=== PATIENT | male | born 1995 | race Caucasian/White ===

== ENCOUNTER 2016-05-29 02:41 | Emergency (ER) | payer MEDICAID, OTHER ==
[~2016-05-29] VITALS: Ht 182.9 cm; Wt 207.3 kg
[~2016-05-29 02:41] MED LIST: LORTA5 PO; Z.0.NO CURRENT MEDS
[2016-05-29 02:47] VITALS: BP 145/97; PULSE 89; RESP 20; TEMP 98; O2SAT 96
[2016-05-29 03:49] VITALS: BP 145/97; PULSE 89; RESP 20; TEMP 98; O2SAT 96
[2016-05-29] MEDS ORDERED: POLY3.5O RIGHT EYE (03:58)
[2016-05-29] MEDS ORDERED: PROPARACAINE HCL 0.5% OPHT SOLN 15 ML BTL RIGHT EYE ONE (04:30)
[2016-05-29] MEDS ORDERED: HYDR-3533 PO (04:46)
--- NOTE | 2016-05-29 04:46 | PD ---
HPI Chief Complaint: Eye Problems/Injury Time Seen by Provider: 04:24 Travel History International Travel<30 days: No Contact w/Intl Traveler<30days: No Traveled to known affect area: No History of Present Illness HPI 21-year-old male presents to the emergency department with right eye pain tearing and redness. Patient states he wore his sisters contact lens on and started developing eye pain and removed and then ordered again on Tuesday with worsening eye pain. Patient went to [facility] and was told he had at [facility] infection and was given a prescription for an antibiotic ointment symptoms of progressive worsened and presents now for further evaluation. Patient is not his tetanus status. Patient normally wears eyeglasses and does not have his own prescription for contact lenses. Patient states he did not wear one of his sisters use contact lenses. PFSH Past Medical History Diminished Hearing: No Hypertension: Yes Immunizations Current: No Tetanus Vaccination: Unknown Social History Alcohol Use: Yes (OCCASSIONALLY) Tobacco Use: Yes (1/2ppd) Substance Use: No Allergies-Medications (Allergen,Severity, Reaction): Coded Allergies: No Known Allergies (Unverified , 05/29/16) Reported Meds & Prescriptions Reported Meds & Active Scripts Active Vigamox Opth Drops (Moxifloxacin Opth Drops) 0.5 % Soln 1 Drop RIGHT EYE Q2HR Reported Bacitracin-Polymyxin B Opth Oint (Bacitracin/Polymyxin B Sulfate) 500-10,000 Unit/Gm Oint 1 Applic RIGHT EYE Q3H Review of Systems Except as stated in HPI: all other systems reviewed are Neg Eyes: Positive: Photophobia, Redness, Foreign Body Sensation, Pain, Tearing, Visual changes Physical Exam Narrative Gen.: Well-developed well-nourished male in no acute distress no respiratory distress HEENT: Attention eyes right eye with erythema injection and tearing and loading version no obvious foreign body identified Extraocular muscles intact pupils equal round reactive to light proparacaine drop administered fluorescein stain large area of corneal abrasion identified Data Data Last Documented VS Vital Signs Date Time Temp Pulse Resp B/P Pulse Ox O2 Delivery O2 Flow Rate FiO2 05/29/16 05:35 84 18 97 05/29/16 05:34 141/89 Room Air 05/29/16 03:49 98.0 Orders Proparacaine 0.5% Opth Soln (Alcaine 0.5 (05/29/16 04:30) Acetamin-Hydrocod 325-5 Mg ([place] 5-325 (05/29/16 05:00) Moxifloxacin 0.5% Opht Soln (Vigamox 0.5 (05/29/16 05:00) Tetanus/Diphtheria Tox Adult (Tetanus/Di (05/29/16 05:00) MDM Medical Decision Making Medical Screen Exam Complete: Yes Emergency Medical Condition: Yes Medical Record Reviewed: Yes Differential Diagnosis Corneal abrasion, corneal ulcer, conjunctivitis, iritis, foreign body Narrative Course Fluorescein stain shows uptake of large area of corneal abrasion crushable area of increased density concerning for ulceration; unable to obtain visual acuities as no lenses with patient Case discussed with on-call poultry killer states unlikely that this is an ulceration but once patient started on moxifloxacin one drop every hour to the right eye and follow-up in the office on Tuesday recommends no narcotics uses it may interfere with patient's administration of the eyedrop on a frequent routine basis as directed. Bed Teacher recommendations conveyed to patient and parent at bedside. Tetanus status updated. First eyedrop administered in the emergency department. Physician Communication Physician Communication discussed with Dr Frias -- will see in the office Tuesday; start moxiflox eye drops 1 drop to affected eye q 1 hour until seen in office on Tuesday --no narcotic Rx Diagnosis Primary Impression: Corneal abrasion due to contact lens Qualified Code: H18.821 - Corneal abrasion due to contact lens, right Referrals: Bed Teacher 1 day [employer] Attendant opthalmologist: Dr Frias Additional Instructions: Apply eye drops as directed every 1 hour to the right eye until follow-up with poultry killer on Tuesday May use cool compresses to area for comfort May use ibuprofen per package directions 800 mg as often as every 8 hours for pain associated with inflammation Return to the emergency department for any concerns or change in condition Do not rub or irritate the affected eye Return to the emergency department for any concerns or change in condition Do not wear contact lenses Med/Other Pt SpecificInfo: Prescription(s) given Scripts Moxifloxacin Opth Drops (Vigamox Opth Drops)0.5 % Soln1 Drop RIGHT EYE Q2HR #1 BOTTLE Ref 0 Prov:Paulette Lindquist MD 05/29/16 Disposition: 01 DISCHARGE HOME Condition: Stable Paulette Lindquist MD May 29, 2016 04:46
[2016-05-29] MEDS ORDERED: ACETAMINOPHEN/HYDROcodone 325 MG/5 MG TAB PO ONE (05:00)
[2016-05-29] MEDS ORDERED: MOXIFLOXACIN 0.5% OPHT SOLN 3 ML BTL RIGHT EYE ONE (05:00)
[2016-05-29] MEDS ORDERED: TETANUS/DIPHTHERIA TOXOID ADULT 0.5 ML VIAL IM ONE (05:00)
[2016-05-29] MEDS ORDERED: VIGA0.5D RIGHT EYE (05:07)
[2016-05-29 05:34] VITALS: BP 141/89; PULSE 78; RESP 18; O2SAT 97
== END 2016-05-29 05:39 | disposition home or self-care (01) ==
LOC: PHED 02:41
DX: H18.821 Corneal disorder due to contact lens, right eye (principal); I10 Essential (primary) hypertension; F17.200 Nicotine dependence, unspecified, uncomplicated; Z23 Encounter for immunization
CPT/HCPCS: 90471; 90714

== ENCOUNTER 2017-04-02 13:02 | Emergency (ER) | payer SELFPAY ==
[~2017-04-02] VITALS: Ht 180.3 cm; Wt 202.0 kg
[~2017-04-02 13:02] MED LIST changes: -LORTA5 PO; +POLY3.5O RIGHT EYE; +VIGA0.5D RIGHT EYE; -Z.0.NO CURRENT MEDS
[2017-04-02 13:25] VITALS: BP 135/87; PULSE 90; RESP 16; TEMP 99.3; O2SAT 98
[2017-04-02] MEDS ORDERED: AUGM875T3 PO (14:50)
--- NOTE | 2017-04-02 14:51 | PD ---
HPI Chief Complaint: Bite or Sting Time Seen by Provider: 14:43 Travel History International Travel<30 days: No Contact w/Intl Traveler<30days: No Traveled to known affect area: No History of Present Illness HPI 22-year-old male presents to the emergency department for evaluation for a dog bite to his left lower leg that occurred 2 days ago. He states it was his friend's roommate dog and the dog's vaccinations are up-to-date. Patient states he started noticing some redness last night and became concerned. No drainage. No fevers. He has no chronic medical problems and takes no medications. No exacerbating or alleviating factors. Moderate severity. PFSH Past Medical History Diminished Hearing: No Hypertension: Yes Immunizations Current: No Tetanus Vaccination: < 5 Years Influenza Vaccination: No Past Surgical History Surgical History: No Previous Surgery Social History Alcohol Use: Yes (Social) Tobacco Use: Yes (2 packs/week) Substance Use: No Allergies-Medications (Allergen,Severity, Reaction): Coded Allergies: No Known Allergies (Unverified Adverse Reaction, Unknown, 04/02/17) Reported Meds & Prescriptions Reported Meds & Active Scripts Active No Active Prescriptions or Reported Medications Review of Systems Except as stated in HPI: all other systems reviewed are Neg Physical Exam Narrative GENERAL: Well-nourished, well-developed male patient, ambulatory. Afebrile. SKIN: Focused skin assessment warm/dry. Patient has 2 small puncture wounds to the left anterior lower leg with mild surrounding erythema. No lymphangitis. No drainage. HEAD: Normocephalic. Atraumatic. EYES: No scleral icterus. No injection or drainage. NECK: Supple, trachea midline. No JVD or lymphadenopathy. CARDIOVASCULAR: Regular rate and rhythm without murmurs, gallops, or rubs. RESPIRATORY: No accessory muscle use. MUSCULOSKELETAL: No cyanosis, or edema. BACK: Nontender without obvious deformity. No CVA tenderness. Data Data Last Documented VS Vital Signs Date Time Temp Pulse Resp B/P (MAP) Pulse Ox O2 Delivery O2 Flow Rate FiO2 04/02/17 13:25 99.3 90 16 135/87 (103) 98 Orders Orders Tetanus/Diphtheria Tox Adult (Tetanus/Di (04/02/17 15:00) Amoxicil-Clavulanate (Augmentin) (04/02/17 15:00) MDM Medical Decision Making Medical Screen Exam Complete: Yes Emergency Medical Condition: Yes Medical Record Reviewed: Yes Differential Diagnosis Dog bite versus cellulitis versus abscess Narrative Course 22-year-old male presents to the emergency Department treatment we should've a dog bite to his left anterior lower leg that occurred 2 days ago. Physical consistent with cellulitis. Patient is unsure of his tetanus immunization is up -to-date. This will be updated today. He will be started on Augmentin, first dose given in the emergency department. Patient is instructed on proper wound care. He is return for any acute worsening of symptoms. The patient was discharged in stable condition with instructions, including return instructions and follow up instructions. Diagnosis Primary Impression: Dog bite Qualified Codes: W54.0XXA - Bitten by dog, initial encounter Additional Impression: Cellulitis Qualified Codes: L03.116 - Cellulitis of left lower limb Referrals: Primary Care Physician call for appointment Patient Instructions: Animal Bite (ED), Cellulitis (ED), General Instructions Additional Instructions: Clean twice daily with soap and water and apply [id number] antibiotic ointment. Take Augmentin as directed until gone. Go to [employer] for coupon. Follow-up with your primary care physician. Return to the emergency department for any acute worsening of symptoms. Med/Other Pt SpecificInfo: Prescription(s) given Scripts Amoxicillin-Clavulanate (Augmentin) 875-125 Mg Tab 1 TAB PO BID for Infection for 10 Days, #20 TAB 0 Refills Prov: Kate Jacob 04/02/17 Disposition: 01 DISCHARGE HOME Condition: Stable Kate Jacob Apr 02, 2017 14:51
[2017-04-02] MEDS ORDERED: TETANUS/DIPHTHERIA TOXOID ADULT 0.5 ML VIAL IM ONE (15:00)
[2017-04-02] MEDS ORDERED: AMOXICILLIN/CLAVULANATE K 875 MG TAB PO ONE (15:00)
== END 2017-04-02 15:12 | disposition home or self-care (01) ==
LOC: PHED 13:02 → PHEFT 15:12
DX: L03.116 Cellulitis of left lower limb (principal); Z23 Encounter for immunization; I10 Essential (primary) hypertension; F17.210 Nicotine dependence, cigarettes, uncomplicated; W54.0XXA Bitten by dog, initial encounter
CPT/HCPCS: 90471; 90714